=== PATIENT | female | born 1945 | race Caucasian/White ===

== ENCOUNTER 2025-01-22 13:05 | Observation (INO) | payer MEDICARE, SELFPAY ==
[2025-01-22] VITALS (14 sets, daily range): BP systolic 121–169; BP diastolic 44–68; PULSE 63–91; RESP 18–30; TEMP 36.1–36.4; O2SAT 94–100; BMI 26.9; BMI 27.3
--- NOTE | 2025-01-22 13:20 | DI.RAD.S_ITS ---
PROCEDURE: XR CHEST 1V INDICATIONS: Chest Pain TECHNIQUE: One view of the chest was acquired. COMPARISON: None. FINDINGS: Surgical changes and devices: None. Lungs and pleura: Lungs are clear. No pleural effusions or pneumothorax. Mediastinum: Mediastinal contours appear normal. Vascular calcifications of the thoracic aorta. Heart size is normal. Bones and chest wall: No suspicious bony lesions. Overlying soft tissues appear unremarkable. IMPRESSION: No acute cardiopulmonary abnormality is seen. Dictated by: Andreas Riddle M.D. on 01/22/2025 at 13:55 Approved by: Andreas Riddle M.D. on 01/22/2025 at 13:55
--- NOTE | 2025-01-22 13:20 | EKG_ITS ---
[address] [address] Test Date: 2025-01-22 Pat Name: Aleksandra Estrada Department: [facility] Room: Gender: Female Departmental Secretary: HUSSAIN : 1945 Requested By: Order Number: [id number] Reading MD: David Gonsales MD Measurements Intervals [place] Rate: 68 P: 22 MN: 166 QRS: 23 QRSD: 90 T: 21 QT: 398 QTc: 423 Interpretive Statements Normal sinus rhythm Possible Anterior infarct , age undetermined Electronically Signed On 01-23-2025 7:37:22 PDT by David Gonsales MD
[2025-01-22 13:40] LABS: Add Manual Diff / Slide Review NO; Hematocrit 36.9 % (36-46); Hemoglobin 12.2 g/dL (12.0-16.0); Lymphocytes Absolute Auto 1300 /uL (1100-4500); Mean Corpuscular HGB Conc 33.1 % (30-36); Mean Corpuscular Hemoglobin 28.3 PG (26-34); Mean Corpuscular Volume 85.5 fL (80-100); Platelet Count 478 X10^3/uL (150-400)
[2025-01-22 13:47] LABS: INR 1.2 (0.9-1.3); Prothrombin Time 13.9 SECONDS (9.4-12.5)
[2025-01-22 13:50] LABS: PTT Partial Thromboplastin Tim 29 SECONDS (25.1-36.5)
[2025-01-22 13:52] LABS: Alanine Aminotransferase 83 IU/L (<35); Albumin 4.3 g/dL (3.5-5.0); Albumin Globulin Ratio 1.0 (1.0-2.8); Alkaline Phosphatase 188 U/L (38-126); Blood Urea Nitrogen 21 mg/dL (7-17); Calcium 9.7 mg/dL (8.4-10.2); Carbon Dioxide 25 mmol/L (22-32); Chloride 98 mmol/L (98-107); Creatine Kinase 33 U/L (30-135); Estimated Glomerular Filt Rate > 60 mL/min (>60); Globulin 4.2 g/dL (1.7-4.1); Glucose 119 mg/dL (70-99); HEMOLYSIS < 15 (0-50); Lipase 67 U/L (23-300); Magnesium 2.1 mg/dL (1.6-2.3); Potassium 3.7 mmol/L (3.4-5.1); Sodium 134 mmol/L (137-145); Total Protein 8.5 g/dL (6.3-8.2)
[2025-01-22 14:03] LABS: NT-proBNP (BNP-Adult 18+) 277 pg/mL (<450); Troponin I < 0.012 ng/mL (0.01-0.034)
--- NOTE | 2025-01-22 14:45 | ED_ITS ---
HPI - General Adult General Chief complaint: Dizziness Stated complaint: [facility] ref - dizzy, unsteady Time Seen by Provider: 01/22/25 13:29 Source: patient Mode of arrival: Ambulatory History of Present Illness HPI narrative: Patient here with daughter. In the past couple of days has had 5-10 minutes episodes of dizziness feels like the room is spinning. No nausea no vomiting no vision changes. No slurred speech facial droop limb numbness tingling or weakness. No hearing changes. Patient denies any history of heart attack strokes diabetes or vertigo. Dizziness occurs when she is at rest. It is not positional with positional changes. Related Data Home Medications ?Medication ?Instructions ?Recorded ?Confirmed atorvastatin 40 mg tablet 40 mg PO DAILY 01/22/2501/02 lisinopril 20 1 tab PO DAILY 01/22/2501/02 mg-hydrochlorothiazide 25 mg tablet Allergies Allergy/AdvReac Type Severity Reaction Status Date / Time cocamidopropyl betaine Allergy Unknown Verified 01/22/25 13:36 lanolin Allergy Unknown Verified 01/22/25 13:36 naproxen Allergy Unknown Verified 01/22/25 13:36 propolis (bee glue) Allergy Unknown Verified 01/22/25 13:36 soy Allergy Unknown Verified 01/22/25 13:36 Sulfa (Sulfonamide Allergy Unknown Verified 01/22/25 13:36 Antibiotics) wheat Allergy Unknown Verified 01/22/25 13:36 balsam dayana Allergy Verified 01/22/25 13:36 corn Allergy Verified 01/22/25 13:36 egg Allergy Verified 01/22/25 13:36 Fish Containing Products Allergy Verified 01/22/25 13:36 tomato Allergy Verified 01/22/25 13:36 conrado sulfate Allergy Unknown Uncoded 01/22/25 13:36 ppd paraphenylenediamine dye Allergy Unknown Uncoded 01/22/25 13:36 sorbitan sequioleate Allergy Unknown Uncoded 01/22/25 13:36 sorbitol acid Allergy Unknown Uncoded 01/22/25 13:36 sulfites Allergy Unknown Uncoded 01/22/25 13:36 benzophenone-3 Allergy Uncoded 01/22/25 13:36 benzophenone-4 Allergy Uncoded 01/22/25 13:36 textile dye mix Allergy Uncoded 01/22/25 13:36 Review of Systems Review of Systems Narrative: GENERAL: Negative chills, fatigue, malaise, fever, sweats. HEENT: Negative sinus pain, ear pain, sore throat RESPIRATORY: Negative dyspnea, cough CARDIOVASCULAR: Negative chest pain, palpitations GASTROINTESTINAL: Negative vomiting, nausea, abdominal pain : Negative dysuria, frequency, hematuria MUSCULOSKELETAL: Negative muscle or bony pain SKIN: Negative rash, skin lesions NEUROLOGIC: Negative weakness, numbness, positive dizziness ROS Unobtainable: All systems reviewed & are unremarkable except as noted in HPI and below Patient History Social History household members: children Smoking Status: Never smoker alcohol intake: never Smoking Status: Never smoker Exam Narrative Exam Narrative: GENERAL: in no distress, not toxic not dyspneic HEAD: Normocephalic. EYES: Pupils equal round ENT: Mucous membranes moist. NECK: Trachea midline. CARDIOVASCULAR: Regular rate and rhythm RESPIRATORY: Clear to auscultation. Breath sounds equal bilaterally. No wheezes, rales, or rhonchi. GASTROINTESTINAL: Abdomen soft, non-tender EXTREMITIES: No gross deformities. BACK: No flank tenderness. NEURO: AOx4. 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 Fast exam is negative. SKIN: Warm and dry PSYCH: Not anxious, is cooperative Initial Vital Signs Initial Vital Signs: Vital Signs Blood Pressure 144/63 H 01/22/25 13:17 Scores NIH Stroke Scale Level of Conciousness: Alert, keenly responsive Ask month/age: Answers both questions correctly. Open/close eyes, close hand: Performs both tasks correctly Best gaze horizontal: Normal Visual locke: No visual loss Facial palsy: Normal symetrical movement Left arm drift: No drift for full 10 sec Right arm drift: No drift for full 10 sec Left leg drift: No drift for full 5 sec Right leg drift: No drift for full 5 sec Limb ataxia: Absent Sensory on face/arms/legs: Normal, no sensory loss Best language: No aphasia, normal Dysarthria: Normal Extinction or inattention: No abnormality Total NIH Stroke scale score: 0 Course Orders Ordered: ED Orders 01/22/25 13:20 XR chest 1V Stat EKG-12 Lead Stat 01/22/25 13:30 Complete Blood Count AUTO DIFF Stat Comprehensive Metabolic Panel Stat Lipase Stat Magnesium Stat NT-proBNP (BNP-Adult 18+) Stat PTT Partial Thromboplastin [place] Stat Prothrombin Time INR Stat Troponin & CK Cardiac Panel Stat 01/22/25 14:52 CT angio head and neck Stat CT head/brain wo con Stat 01/22/25 15:01 Urinalysis and Microscopic Stat Urine Culture Stat Acetaminophen (Acetaminophen 325 Mg Tablet) 650 mg PO Q6H PRN PRN Reason: Fever Aspirin (Aspirin Ec 81 Mg Tablet) 81 mg PO DAILY [facility] Atorvastatin Calcium (Atorvastatin 20 Mg Tablet) 80 mg PO BEDTIME [facility] Clopidogrel Bisulfate (Clopidogrel 75 Mg Tablet) 75 mg PO DAILY [facility] Heparin Sodium (Porcine) (Heparin 5,000 Unit/Ml Vial) 5,000 unit SUBCUT BID [facility] Sodium Chloride (Normal Saline 0.9%) 1,000 mls @ 75 mls/hr IV CONT BACILIO Last Admin: 01/22/25 17:26 Dose: 75 mls/hr Documented By: CESAR Naloxone HCl (Naloxone 0.4 Mg/Ml Vial) 0.2 mg IV Q2MIN PRN PRN Reason: Opiate Reversal Discontinued Medications Aspirin (Aspirin 81 Mg Chew Tab) 324 mg PO NOW ONE Stop: 01/22/25 13:21 Last Admin: 01/22/25 15:05 Dose: Not Given Documented By: YARITZA Clopidogrel Bisulfate (Clopidogrel 75 Mg Tablet) 300 mg PO NOW ONE Stop: 01/22/25 15:53 Last Admin: 01/22/25 16:00 Dose: 300 mg Documented By: YARITZA Sodium Chloride (Normal Saline 0.9%) 1,000 mls @ 1,000 mls/hr IV BOLUS ONE Stop: 01/22/25 15:55 Last Infusion: 01/22/25 16:28 Dose: Infused Documented By: Admin: 01/22/25 15:16 Dose: 1,000 mls/hr Documented By: YARITZA Vital Signs Vital signs: Vital Signs - 8 hr 01/22/25 13:17 01/22/25 13:18 01/22/25 13:23 Temperature 97.5 F L Pulse Rate 83 78 Respiratory Rate 18 Blood Pressure 144/63 H 144/63 H Pulse Oximetry 94 97 Oxygen Delivery Method Room Air 01/22/25 13:30 01/22/25 14:00 01/22/25 14:30 Temperature Pulse Rate 67 66 63 Respiratory Rate 22 22 26 H Blood Pressure Pulse Oximetry 97 96 96 Oxygen Delivery Method 01/22/25 15:00 01/22/25 15:18 01/22/25 15:18 Temperature Pulse Rate 76 76 Respiratory Rate 26 H 25 H Blood Pressure 151/65 H Pulse Oximetry 96 99 Oxygen Delivery Method 01/22/25 15:30 01/22/25 15:30 01/22/25 16:00 Temperature Pulse Rate 75 70 Respiratory Rate 30 H 22 Blood Pressure 140/66 Pulse Oximetry 97 96 Oxygen Delivery Method 01/22/25 16:01 01/22/25 16:01 Temperature Pulse Rate 77 Respiratory Rate 26 H Blood Pressure 121/58 L Pulse Oximetry 96 Oxygen Delivery Method Medical Decision Making Lab Data 01/22/25 13:30 01/22/25 13:30 Labs: Lab Results 01/22/25 01/22/25 Range/Units 13:30 15:01 WBC 11.0 (4.5-11.0) X10^3/uL RBC 4.31 (4.0-5.2) X10^6/uL Hgb 12.2 (12.0-16.0) g/dL Hct 36.9 (36-46) % MCV 85.5 (80-100) fL MCH 28.3 (26-34) PG MCHC 33.1 (30-36) % RDW 14.1 (11.6-14.8) % Plt Count 478 H (150-400) X10^3/uL Neut % (Auto) 79.2 H (50-75) % Lymph % (Auto) 11.5 L (25-40) % [place] % (Auto) 7.9 (3-14) % Eos % (Auto) 1.0 L (2-4) % Baso % (Auto) 0.4 (0-2) % Neut # (Auto) 8700 H (8470-0037) /uL Lymph # (Auto) 1300 (5385-1370) /uL [place] # (Auto) 900 (0-900) /uL Eos # (Auto) 100 (0-450) /uL Baso # (Auto) 0 (0-100) /uL PT 13.9 H (9.4-12.5) SECONDS INR 1.2 (0.9-1.3) APTT 29 (25.1-36.5) SECONDS Sodium 134 L (137-145) mmol/L Potassium 3.7 (3.4-5.1) mmol/L Chloride 98 (98-107) mmol/L Carbon Dioxide 25 (22-32) mmol/L BUN 21 H (7-17) mg/dL Creatinine 0.65 (0.52-1.04) mg/dL Estimated GFR > 60 (>60) mL/min BUN/Creatinine Ratio 32.3 H (6-22) Glucose 119 H (70-99) mg/dL Hemoglobin A1c 6.6 H (4.0-6.0) % Calcium 9.7 (8.4-10.2) mg/dL Magnesium 2.1 (1.6-2.3) mg/dL Total Bilirubin 0.7 (0.2-1.3) mg/dL AST 45 H (14-36) IU/L ALT 83 H (<35) IU/L Alkaline Phosphatase 188 H (38-126) U/L Total Creatine Kinase 33 (30-135) U/L Troponin I < 0.012 (0.01-0.034) ng/mL NT-Pro-B Natriuret Pep 277 (<450) pg/mL Total Protein 8.5 H (6.3-8.2) g/dL Albumin 4.3 (3.5-5.0) g/dL Globulin 4.2 H (1.7-4.1) g/dL Albumin/Globulin Ratio 1.0 (1.0-2.8) Triglycerides 73 (35-150) mg/dL Cholesterol 130 L (140-199) mg/dL LDL Cholesterol, Calc 77 (<100) mg/dL HDL Cholesterol 38 L (40-60) mg/dL Lipase 67 (23-300) U/L TSH 0.752 (0.47-4.68) uIU/mL Urine Color Yellow Urine Appearance Clear Urine pH 6.0 (4.5-8.0) Ur Specific [place] <=1.005 (1.000-1.035) Urine Protein Negative (Negative) Urine Glucose (UA) Negative (Negative) g/dL Urine Ketones Negative (NEGATIVE) Urine Occult Blood Trace-intact (Negative) Urine Nitrate Negative (Negative) Urine Bilirubin Negative (NEGATIVE) Urine Urobilinogen 0.2 (0.2) E.U./dL Ur Leukocyte Esterase 1+ H (NEGATIVE) Urine RBC 0-1/hpf (0-5/HPF) Urine WBC 1-5/hpf (0-5/HPF) Ur Squamous Epith Cells 0-1 /hpf (0-5/HPF) Urine Bacteria Occasional (0-1) (None) Ur Culture Indicated? Specimen cultured Vol Urine Centrifuged 10ml (spun) Imaging Data Chest x-ray: Radiologist's Impression: [address] [address] XRay Report Signed Patient: Aleksandra Estrada MR#: [id number] : 1945 Acct:[id number] Age/Sex: 79 / F Date of Service: 01/22/25 Loc: ED Accession Number: [id number] Procedure: XR chest 1V Ordering Provider: Gavino Burleson MD PROCEDURE: XR CHEST 1V INDICATIONS: Chest Pain TECHNIQUE: One view of the chest was acquired. COMPARISON: None. FINDINGS: Surgical changes and devices: None. Lungs and pleura: Lungs are clear. No pleural effusions or pneumothorax. Mediastinum: Mediastinal contours appear normal. Vascular calcifications of the thoracic aorta. Heart size is normal. Bones and chest wall: No suspicious bony lesions. Overlying soft tissues appear unremarkable. IMPRESSION: No acute cardiopulmonary abnormality is seen. Dictated by: Andreas Riddle M.D. on 01/22/2025 at 13:55 Approved by: Andreas Riddle M.D. on 01/22/2025 at 13:55 CT scan - head: Radiologist's Impression: [address] [address] [address] Scan Report Signed Patient: Aleksandra Estrada MR#: [id number] : 1945 Acct:[id number] Age/Sex: 79 / F Date of Service: 01/22/25 Loc: ED Accession Number: [id number] Procedure: CT head/brain wo con Ordering Provider: Gavino Burleson MD PROCEDURE: CT HEAD/BRAIN WO CON INDICATIONS: Dizziness TECHNIQUE: Noncontrast 4.5 mm thick angled axial sections acquired from the foramen magnum to the vertex, with coronal and sagittal reformats. For radiation dose reduction, the following was used: automated exposure control, adjustment of mA and/or kV according to patient size. COMPARISON: Located Within [facility], CT, CT ANGIO HEAD AND NECK, 01/22/2025, 15:00. FINDINGS: Image quality: Diagnostic. CSF spaces: Basal cisterns are patent. No extra-axial fluid collections. The ventricles are symmetric in size and shape. Brain: No intracranial bleeds or mass effect. There is cerebral volume loss, with resultant ventricular and sulcal prominence. There are periventricular and deep white matter chronic small vessel ischemic changes. There is intracranial internal carotid artery atherosclerosis. 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 Skull and face: Calvarium and visualized facial bones appear intact, without suspicious lesions. Sinuses: Visualized sinuses and mastoids are clear. IMPRESSION: 1. 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 2. No acute posterior fossa brain parenchymal findings. Comment: Recommend stroke protocol brain MRI with without contrast. Imaging should utilize dissection protocol in the neck. Dictated by: Robby Luis M.D. on 01/22/2025 at 15:41 Approved by: Robby Luis M.D. on 01/22/2025 at 15:42 CTA - brain/neck: Radiologist's Impression: [place] [address] CT Scan Report Signed Patient: Aleksandra Estrada MR#: [id number] : 1945 Acct:[id number] Age/Sex: 79 / F Date of Service: 01/22/25 Loc: ED Accession Number: [id number] Procedure: CT angio head and neck Ordering Provider: Gavino Burleson MD PROCEDURE: CT ANGIO HEAD AND NECK INDICATIONS: Dizziness TECHNIQUE: After the administration of intravenous contrast, 1 mm thick sections acquired from the aortic arch through the [place] of [place]. 3-dimensional qdjgzai-jfxisegxc-dfsoouqdxc (MIP) and/or volume rendering reformats were acquired of the central intracranial vasculature and neck separately. For radiation dose reduction, the following was used: automated exposure control, adjustment of mA and/or kV according to patient size. COMPARISON: Located Within [facility], CT, CT HEAD/BRAIN WO CON, 01/22/2025, 15:00. FINDINGS: Image quality: Diagnostic. Cerebral CT Angiogram: Internal carotid arteries: No acute findings. Intracranial ICA are patent with no significant stenosis. No occlusion. No aneurysm. Anterior cerebral arteries: Unremarkable. No significant stenosis. No occlusion. No aneurysm. Middle cerebral arteries: Unremarkable. No significant stenosis. No occlusion. No aneurysm. Posterior cerebral arteries: Unremarkable. No significant stenosis. No occlusion. No aneurysm. Basilar artery: Unremarkable. No significant stenosis. No occlusion. No aneurysm. Vertebral arteries: The left vertebral artery is almost completely thrombosed. There is patency of the distal V4 segment which likely fills in a retrograde manner. The vessel appears to be normal caliber suggesting that thrombosis may be acute. The right vertebral artery is normal caliber and is widely patent. Dural venous sinuses: Unremarkable given phase of enhancement. Other: Arterial phase appearance of the brain parenchyma is unremarkable. Neck CT Angiogram: Internal carotid arteries: Unremarkable. No significant stenosis. No dissection or occlusion. Common carotid arteries: Unremarkable. No significant stenosis. No dissection or occlusion. External carotid arteries: Unremarkable. No occlusion. Vertebral arteries: Occlusion of virtually the entire left vertebral artery from its origin to the distal V4 segment. Suspect acute thrombosis. Right vertebral artery is widely patent. Aortic Arch and Mediastinum: Partially visualized aortic arch unremarkable without evidence of aneurysm. Origins of the great vessels unremarkable. Other: 1.8 cm left thyroid nodule. Arterial phase soft tissues of the neck and chest are otherwise unremarkable. 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 There is patency of the distal V4 segment. The basilar artery and posterior cerebral arteries are patent. No significant findings involving the anterior circulation. No significant carotid stenosis. Comment: Findings were discussed with Dr. Burleson on 01/22/2025 at 1534 hours Any quantitative measurements of stenosis were performed using NASCET criteria. Dictated by: Robby Luis M.D. on 01/22/2025 at 15:30 Approved by: Robby Luis M.D. on 01/22/2025 at 15:35 [facility] Narrative Medical decision making narrative: Patient here with daughter. In the past couple of days has had 5-10 minutes episodes of dizziness feels like the room is spinning. No nausea no vomiting no vision changes. No slurred speech facial droop limb numbness tingling or weakness. No hearing changes. Patient denies any history of heart attack strokes diabetes or vertigo. Dizziness occurs when she is at rest. It is not positional with positional changes. MDM After history and exam, CT head CT angiogram head and neck CBC CMP EKG troponin normal saline orthostatics Differential considered: Includes but not limited to TIA stroke vertigo labyrinthitis anemia GI bleed arrhythmia Medical records reviewed: No recent visit for this complaint Lab Test results independently reviewed as above. Pertinent findings: WBC 11 hemoglobin 12 INR 1.2 sodium 134 potassium 3.7 BUN 21 creatinine 0.65 GFR greater than 60 AST 45 ALT 83 troponin less than 0.012 Independently reviewed EKG normal sinus rhythm rate [address] elevation or depression Imaging studies independently reviewed: CT head CT angiogram head and neck occlusion of the left vertebral artery. Consultations: 3:50 p.m.. I spoke with Dr. Pink, [facility] tele stroke, no transfer indicated. No intervention for vertebral artery finding. Admit here for stroke workup. Start dual antiplatelet therapy. 4:05 p.m.. Spoke with hospitalist, dr burton, who will admit patient. Re-evaluations: 3:53 p.m.. Updated patient results. Will need admission for stroke workup. Discussion: Appropriate for admission for balance and workup for TIA/stroke. Neurology was contacted. Aspirin and Plavix started in the department Diagnosis: TIA Discharge Plan Departure Patient Disposition: Admitted As Inpatient Clinical Impression: Brain TIA Admit Date/Time: 01/22/25 16:06 Admit Provider: Augustine Burton
--- NOTE | 2025-01-22 14:52 | DI.CT.S_ITS ---
PROCEDURE: CT ANGIO HEAD AND NECK INDICATIONS: Dizziness TECHNIQUE: After the administration of intravenous contrast, 1 mm thick sections acquired from the aortic arch through the [place] of [place]. 3-dimensional mbadeel-sjnnpmzhl-kkveyqolhw (MIP) and/or volume rendering reformats were acquired of the central intracranial vasculature and neck separately. For radiation dose reduction, the following was used: automated exposure control, adjustment of mA and/or kV according to patient size. COMPARISON: [facility], CT, CT HEAD/BRAIN WO CON, 01/22/2025, 15:00. FINDINGS: Image quality: Diagnostic. Cerebral CT Angiogram: Internal carotid arteries: No acute findings. Intracranial ICA are patent with no significant stenosis. No occlusion. No aneurysm. Anterior cerebral arteries: Unremarkable. No significant stenosis. No occlusion. No aneurysm. Middle cerebral arteries: Unremarkable. No significant stenosis. No occlusion. No aneurysm. Posterior cerebral arteries: Unremarkable. No significant stenosis. No occlusion. No aneurysm. Basilar artery: Unremarkable. No significant stenosis. No occlusion. No aneurysm. Vertebral arteries: The left vertebral artery is almost completely thrombosed. There is patency of the distal V4 segment which likely fills in a retrograde manner. The vessel appears to be normal caliber suggesting that thrombosis may be acute. The right vertebral artery is normal caliber and is widely patent. Dural venous sinuses: Unremarkable given phase of enhancement. Other: Arterial phase appearance of the brain parenchyma is unremarkable. Neck CT Angiogram: Internal carotid arteries: Unremarkable. No significant stenosis. No dissection or occlusion. Common carotid arteries: Unremarkable. No significant stenosis. No dissection or occlusion. External carotid arteries: Unremarkable. No occlusion. Vertebral arteries: Occlusion of virtually the entire left vertebral artery from its origin to the distal V4 segment. Suspect acute thrombosis. Right vertebral artery is widely patent. Aortic Arch and Mediastinum: Partially visualized aortic arch unremarkable without evidence of aneurysm. Origins of the great vessels unremarkable. Other: 1.8 cm left thyroid nodule. Arterial phase soft tissues of the neck and chest are otherwise unremarkable. 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 There is patency of the distal V4 segment. The basilar artery and posterior cerebral arteries are patent. No significant findings involving the anterior circulation. No significant carotid stenosis. Comment: Findings were discussed with Dr. Burleson on 01/22/2025 at 1534 hours Any quantitative measurements of stenosis were performed using NASCET criteria. Dictated by: Robby Luis M.D. on 01/22/2025 at 15:30 Approved by: Robby Luis M.D. on 01/22/2025 at 15:35
--- NOTE | 2025-01-22 14:52 | DI.CT.S_ITS ---
PROCEDURE: CT HEAD/BRAIN WO CON INDICATIONS: Dizziness TECHNIQUE: Noncontrast 4.5 mm thick angled axial sections acquired from the foramen magnum to the vertex, with coronal and sagittal reformats. For radiation dose reduction, the following was used: automated exposure control, adjustment of mA and/or kV according to patient size. COMPARISON: [facility], CT, CT ANGIO HEAD AND NECK, 01/22/2025, 15:00. FINDINGS: Image quality: Diagnostic. CSF spaces: Basal cisterns are patent. No extra-axial fluid collections. The ventricles are symmetric in size and shape. Brain: No intracranial bleeds or mass effect. There is cerebral volume loss, with resultant ventricular and sulcal prominence. There are periventricular and deep white matter chronic small vessel ischemic changes. There is intracranial internal carotid artery atherosclerosis. 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 Skull and face: Calvarium and visualized facial bones appear intact, without suspicious lesions. Sinuses: Visualized sinuses and mastoids are clear. IMPRESSION: 1. 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 2. No acute posterior fossa brain parenchymal findings. Comment: Recommend stroke protocol brain MRI with without contrast. Imaging should utilize dissection protocol in the neck. Dictated by: Robby Luis M.D. on 01/22/2025 at 15:41 Approved by: Robby Luis M.D. on 01/22/2025 at 15:42
[2025-01-22 15:16] LABS: Appearance Urine UA CLEAR; Bilirubin Urine UA NEGATIVE (NEGATIVE); Color Urine UA YELLOW; Glucose Urine UA NEGATIVE (Negative); Ketones Urine UA NEGATIVE (NEGATIVE); Leukocyte Esterase Urine UA 1+ (NEGATIVE); Nitrite Urine UA NEGATIVE (Negative); Occult Blood Urine UA TRACE-INTACT (Negative); Protein Urine UA NEGATIVE (Negative); Specific Gravity Urine UA <=1.005 (1.000-1.035); Urobilinogen Urine UA 0.2 E.U./dL (0.2)
[2025-01-22] MEDS: SODIUM CHLORIDE 0.9% 1,000 ML 1000 ML IV (15:16)
[2025-01-22 15:21] LABS: pH Urine UA 6.0 (4.5-8.0)
[2025-01-22 15:29] LABS: Culture Indicated Urine Specimen Cultured
[2025-01-22] MEDS: CLOPIDOGREL 75 MG TABLET 300 MG PO (16:00)
--- NOTE | 2025-01-22 16:04 | P.HP_ITS ---
History of Present Illness History of Present Illness Date Patient Seen: 01/22/25 Chief complaint: Left vertebral artery occlusion with stroke Narrative: Chief complaint: Vertiginous spinning sensation with findings of acute left vertebral artery occlusion with subacute stroke on CT imaging and angiography History of present illness 79-year-old female no previous history of strokes or myocardial infarction has been having 5-10 minute episodes dizziness feeling like the room is spinning for the past 2 days was brought to the emergency department for evaluation. She reports when she walks she had to hold up on the hallways and specially felt clumsy with her left leg Findings in the emergency department significant for: CT head and vessels angiography: 1. 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 2. No acute posterior fossa brain parenchymal findings. Comment: Recommend stroke protocol brain MRI with without contrast. Imaging should utilize dissection protocol in the neck. There is patency of the distal V4 segment. The basilar artery and posterior cerebral arteries are patent. No significant findings involving the anterior circulation. No significant carotid stenosis. EKG normal sinus rhythm no acute ST segment or T-wave changes CBC unremarkable comprehensive metabolic unremarkable AST 45 ALT 83 Urinalysis unremarkable Review of systems: Patient has not had any headache diplopia blurred vision or level of consciousness change No chest pains palpitations shortness for breath Did have epistaxis and cough following COVID 2 weeks ago No nausea vomiting diarrhea constipation No fever or chills No urinary symptom Physical exam: Elderly female very pleasant no acute distress HEENT unremarkable PERRLA EOMI Visual locke are intact Neck no carotid bruits no thyromegaly Heart rate and rhythm regular no murmurs Lungs clear Abdomen nontender nondistended Extremities no edema Neurologic exam: Alert and oriented x4 NIH score 0 Cranial nerves intact Visual locke intact 5/5 strength x4 in all extremities 1+ reflexes in all 4 extremities and normal Light touch position sense intact Finger to nose slightly dysmetric on left normal on right Gait is slightly unsteady Able to stand and right foot unable to stand on left leg alone Negative Romberg Assessment and plan: 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 presenting with subtle findings of balance and gait disturbances * Outside of window for thrombolytic * Determined not a candidate for interventional Neurology by [facility] * Dual antiplatelet high intensity statin * Permissive hypertension for 24 hour * Echocardiogram (this may be cardiogenic in origin) * MRI with and without contrast of the brain with dissection protocol * Neuro checks PT OT and usual stroke protocol DVT prophylaxis: * Subcutaneous heparin Code status: * Do not resuscitate per POLST Disposition: * Inpatient expect to require 48 hours of hospitalization and then expect discharge to home with outpatient PT OT Time based billing: * 55 minutes were involved in evaluation of this patient including direct [id number] evaluation and discussion discussion with daughter direct physical examination neurologic examination review of record objective laboratory and imaging findings including direct visualization of imaging by myself and discussion with ER provider and nursing care team on the floor [facility] Social History household members: children alcohol intake: never Meds Home Medications and Allergies Home Medications ?Medication ?Instructions ?Recorded ?Confirmed ?Type atorvastatin 40 mg tablet 40 mg PO DAILY 01/22/2501/02 History lisinopril 20 1 tab PO DAILY 01/22/2501/02 History mg-hydrochlorothiazide 25 mg tablet Allergies Allergy/AdvReac Type Severity Reaction Status Date / Time cocamidopropyl betaine Allergy Unknown Verified 01/22/25 13:36 lanolin Allergy Unknown Verified 01/22/25 13:36 naproxen Allergy Unknown Verified 01/22/25 13:36 propolis (bee glue) Allergy Unknown Verified 01/22/25 13:36 soy Allergy Unknown Verified 01/22/25 13:36 Sulfa (Sulfonamide Allergy Unknown Verified 01/22/25 13:36 Antibiotics) wheat Allergy Unknown Verified 01/22/25 13:36 balsam dayana Allergy Verified 01/22/25 13:36 corn Allergy Verified 01/22/25 13:36 egg Allergy Verified 01/22/25 13:36 Fish Containing Products Allergy Verified 01/22/25 13:36 tomato Allergy Verified 01/22/25 13:36 conrado sulfate Allergy Unknown Uncoded 01/22/25 13:36 ppd paraphenylenediamine dye Allergy Unknown Uncoded 01/22/25 13:36 sorbitan sequioleate Allergy Unknown Uncoded 01/22/25 13:36 sorbitol acid Allergy Unknown Uncoded 01/22/25 13:36 sulfites Allergy Unknown Uncoded 01/22/25 13:36 benzophenone-3 Allergy Uncoded 01/22/25 13:36 benzophenone-4 Allergy Uncoded 01/22/25 13:36 textile dye mix Allergy Uncoded 01/22/25 13:36 Exam Vital Signs (past 8 hours): - 01/22/25 13:17 01/22/25 13:18 01/22/25 13:23 Temperature 97.5 F L Pulse Rate 83 78 Respiratory Rate 18 Blood Pressure 144/63 H 144/63 H Pulse Oximetry 94 97 Oxygen Delivery Method Room Air 01/22/25 13:30 01/22/25 14:00 01/22/25 14:30 Temperature Pulse Rate 67 66 63 Respiratory Rate 22 22 26 H Blood Pressure Pulse Oximetry 97 96 96 Oxygen Delivery Method 01/22/25 15:00 01/22/25 15:18 01/22/25 15:18 Temperature Pulse Rate 76 76 Respiratory Rate 26 H 25 H Blood Pressure 151/65 H Pulse Oximetry 96 99 Oxygen Delivery Method 01/22/25 15:30 01/22/25 15:30 Temperature Pulse Rate 75 Respiratory Rate 30 H Blood Pressure 140/66 Pulse Oximetry 97 Oxygen Delivery Method Oxygen Delivery Method Room Air Objective Labs 01/22/25 13:30 01/22/25 13:30 Labs: Laboratory Results - last 24 hr 01/22/25 01/22/25 13:30 15:01 WBC 11.0 RBC 4.31 Hgb 12.2 Hct 36.9 MCV 85.5 MCH 28.3 MCHC 33.1 RDW 14.1 Plt Count 478 H Neut % (Auto) 79.2 H Lymph % (Auto) 11.5 L Garrard % (Auto) 7.9 Eos % (Auto) 1.0 L Baso % (Auto) 0.4 Neut # (Auto) 8700 H Lymph # (Auto) 1300 Garrard # (Auto) 900 Eos # (Auto) 100 Baso # (Auto) 0 PT 13.9 H INR 1.2 APTT 29 Sodium 134 L Potassium 3.7 Chloride 98 Carbon Dioxide 25 BUN 21 H Creatinine 0.65 Estimated GFR > 60 BUN/Creatinine Ratio 32.3 H Glucose 119 H Calcium 9.7 Magnesium 2.1 Total Bilirubin 0.7 AST 45 H ALT 83 H Alkaline Phosphatase 188 H Total Creatine Kinase 33 Troponin I < 0.012 NT-Pro-B Natriuret Pep 277 Total Protein 8.5 H Albumin 4.3 Globulin 4.2 H Albumin/Globulin Ratio 1.0 Lipase 67 Urine Color Yellow Urine Appearance Clear Urine pH 6.0 Ur Specific [place] <=1.005 Urine Protein Negative Urine Glucose (UA) Negative Urine Ketones Negative Urine Occult Blood Trace-intact Urine Nitrate Negative Urine Bilirubin Negative Urine Urobilinogen 0.2 Ur Leukocyte Esterase 1+ H Urine RBC 0-1/hpf Urine WBC 1-5/hpf Ur Squamous Epith Cells 0-1 /hpf Urine Bacteria Occasional (0-1) Ur Culture Indicated? Specimen cultured Vol Urine Centrifuged 10ml (spun) Assessment & Plan Time-Based Coding :: [TOTAL MINUTES] spent with patient and on the chart (including review of chart, obtaining history, exam, reviewing outside data, placing orders, documenting exam and treatment plan, and counseling patient) on [DATE].
--- NOTE | 2025-01-22 17:08 | DI.ECHO.S_ITS ---
[facility] : : [address] : : [place] : : [id number] : : Phone: [phone] Echocardiogram Report + + :Name: DENVER MCCLOUD Study Date: 01/23/2025 Height: 63 in : :Hospital ReadingLocation: Weight: 154 lb : : Gender: Female BSA: 1.7 m2 : :: 1945 Age: 79 yrs BP: 122/51 mmHg: :Reason For Study: STROKE : :Ordering Physician: RICARDO : :HECTOR Performed By: Tristen Calixto : :Referring: HECTOR SILVA : + + Interpretation Summary The ejection fraction is estimated to be 55-60%. There is no Doppler evidence for an interatrial shunt. There is mild tricuspid regurgitation. The dimensions of the ascending aorta are normal. Procedure: A two-dimensional transthoracic echocardiogram with color flow and Doppler was performed. The study quality was technically adequate. There is no prior echocardiogram noted for this patient. The patient was in normal sinus rhythm during the exam. Left Ventricle: The left ventricle is normal in size. There is normal left ventricular wall thickness. There is no ventricular septal defect visualized. The ejection fraction is estimated to be 55-60%. There are no focal wall motion abnormalities. Diastolic parameters suggest a relaxation abnormality of the left ventricle, consistent with probable normal filling pressures. Right Ventricle: The right ventricle is normal in size and function. Atria: The left atrial size is normal. Right atrial size is normal. There is no Doppler evidence for an interatrial shunt. Mitral Valve: The mitral valve leaflets appear normal. There is no evidence of stenosis, fluttering, or prolapse. There is trace mitral regurgitation. Aortic Valve: The aortic valve is trileaflet. The aortic valve opens well. No aortic regurgitation is present. Tricuspid Valve: The tricuspid valve leaflets are thin and pliable. There is mild tricuspid regurgitation. Pulmonic Valve: The pulmonic valve is not well seen, but is grossly normal. There is trace pulmonic regurgitation. Great Vessels: The aortic root is normal size. The dimensions of the ascending aorta are normal. The pulmonary artery is normal size. The IVC is of normal diameter and collapses greater than 50% with a sniff. This suggests a low right atrial pressure of 3 mm Hg. Pericardium/ Pleura There is no pericardial effusion. There is no pleural effusion. MMode/2D Measurements & Calculations LVIDd: 4.5 cm LVOT diam: 2.2 cm LVIDs: 3.1 cm Ao root diam: 3.2 cm FS: 31.8 % asc Aorta Diam: 3.0 cm EPSS: 0.61 cm IVSd: 1.0 cm LVPWd: 0.92 cm LV johnson. diameter/BSA (cm/m^2): 2.6 LV sys. diameter/BSA (cm/m^2): 1.8 LA A2 area: 22.5 cm2 RA long axis: 4.1 cm LA A4 area: 26.2 cm2 RA area: 13.2 cm2 LA length (vol): 6.6 cm RA vol: 36.5 ml LA vol: 75.9 ml RA : 21.1 ml/m2 LA vol index: 43.9 ml/m2 IVC diam: 1.3 cm RVD1 (basal): 3.8 cm RVD2 (mid): 2.5 cm TAPSE: 2.9 cm Doppler Measurements & Calculations Ao V2 max: 143.8 cm/sec LVOT Max Gilmar: 88.0 cm/sec Ao V2 mean: 102.1 cm/sec LV V1 max P.1 mmHg Ao max P.3 mmHg LV V1 VTI: 23.0 cm Ao mean P.5 mmHg GREGORIO(I,D): 2.6 cm2 Ao V2 VTI: 32.6 cm GREGORIO(V,D): 2.2 cm2 sev ratio: 0.71 GREGORIO indexed to BSA (cm^2/m^2): 1.5 MV E max gilmar: 70.9 cm/sec TR max gilmar: 240.1 cm/sec MV A max gilmar: 87.5 cm/sec TR max P.1 mmHg MV E/A: 0.81 PA V2 max: 87.4 cm/sec Med Peak E' Gilmar: 6.4 cm/sec PA V2 mean: 58.9 cm/sec E/E' med: 11.0 PA mean P.5 mmHg Lat Peak E' Gilmar: 6.8 cm/sec PA pr(Accel): 48.2 mmHg E/E' lat: 10.5 E/e' average: 10.7 MV dec time: 0.16 sec JELANIZEINAB): 84.0 ml Reading Physician:10:50 AM
--- NOTE | 2025-01-22 17:08 | PC.NURSE ---
Pt arrived to [facility] appx 1640. Ambulated to bathroom SBA, then to bed. Pt endorsed dizziness and feeling unsteady. BP 169/68. Pt oriented to room and call light, and instructed to call for assistance before getting OOB. Care ongoing.
[2025-01-22] MEDS: SODIUM CHLORIDE 0.9% 1,000 ML 75 ML IV (17:26)
[2025-01-22 18:03] LABS: Thyroid Stimulating Hormone 0.752 uIU/mL (0.47-4.68)
[2025-01-22 18:17] LABS: Cholesterol 130 mg/dL (140-199); HDL Cholesterol 38 mg/dL (40-60); Triglycerides 73 mg/dL (35-150)
[2025-01-22 18:19] LABS: Hemoglobin A1C% w Est Avg Glu 6.6 % (4.0-6.0)
[2025-01-22] MEDS: ATORVASTATIN 20 MG TABLET 80 MG PO (23:44)
[2025-01-22] MEDS: HEPARIN 5,000 UNIT/ML VIAL 5000 UNIT SUBCUT (23:46)
[2025-01-23 03:00] VITALS: BP 122/51; PULSE 86; RESP 18; TEMP 36.3; O2SAT 96
[2025-01-23 06:09] LABS: Blood Urea Nitrogen 14 mg/dL (7-17); Calcium 8.7 mg/dL (8.4-10.2); Carbon Dioxide 25 mmol/L (22-32); Chloride 102 mmol/L (98-107); Estimated Glomerular Filt Rate > 60 mL/min (>60); Glucose 113 mg/dL (70-99); HEMOLYSIS < 15 (0-50); Potassium 4.1 mmol/L (3.4-5.1); Sodium 133 mmol/L (137-145)
[2025-01-23] MEDS: SODIUM CHLORIDE 0.9% 1,000 ML 75 ML IV (06:31)
[2025-01-23 08:00] VITALS: BP 137/79; PULSE 97; RESP 17; TEMP 35.9; O2SAT 97
--- NOTE | 2025-01-23 09:16 | PT.IIE ---
Physical Therapy Inpatient Evaluation/Re-Eval M1 PT/OT-IP Prior Functional Status Start: 01/23/25 08:43 Freq: NEEDED Status: Active Protocol: Document 01/23/25 08:43 [facility] (Rec: 01/23/25 09:16 [facility] [id number]) Medical Review Prior Functional Status Medical History Yes Reviewed Diet/Fluid Regular Consistency Communication WAINWRIGHT Mobility and Gait no AD Activities of Daily indep cooks, cleans, drives in town until past month Living and IADL's when got COVID Social History Household Members children Living Arrangements House Number of Floors ( Two Floors Floors) Number of Stairs To 6 steps no rail Enter/Railing? Home Environment Standard Height Toilet,Walk in Shower,Built-In Shower Seat Home Equipment Quad Cane,Grab Bars Near Toilet Additional Social 4 steps to sewing room B rails, dgt lives in bottom History Comment level of house, rarely goes down Dgt recently retired M2 PT-IP Current Condition Start: 01/23/25 08:43 Freq: NEEDED Status: Active Protocol: Document 01/23/25 08:43 [facility] (Rec: 01/23/25 09:16 [facility] [id number]) Physical Therapy Current Condition Current Condition Evaluation Date 01/23/25 Treatment Diagnosis CVA M3 PT-IP Subjective Start: 01/23/25 08:43 Freq: NEEDED Status: Active Protocol: Document 01/23/25 08:43 [facility] (Rec: 01/23/25 09:16 [facility] [id number]) Subjective Physical Therapy Visit Type Type Initial Evaluation Visit Start Time 08:42 Visit Stop Time 09:05 Number of DISABILITY AIDE Visits 0 Physical Therapy Visit Comments Patient Comments agreeable to get up. Notes IV has helped Therapy Pain Assessment Pain Present Pain Present Denied Pain M4 PT-IP Mobility and Gait Start: 01/23/25 08:43 Freq: NEEDED Status: Active Protocol: Document 01/23/25 08:43 [facility] (Rec: 01/23/25 09:16 [facility] [id number]) PT-Transfer Assessment Sit to and From Stand Sit to and from Standby Assistance,Use of Upper Extremities Stand Equipment Transfer Assistive Gait Belt Device Orthotic/Prosthetic No Devices or Brace: Comments Mobility Comments seated in chair upon PT arrival and sit to stand SBA then amb CGA w/o AD w/occ reach for wall/surfaces but improved w/steadiness w/inc time w/pt noting knee Stiffness B. She did well with stairs w/CGA and was able to perform as she normally does indoors w/CGA d/t concern for balance. LEft with OT in room w/pt after session Gait Assessment Gait Gait Assistance Contact Guard Assist Required: Distance (Feet) 200 Able to Maintain Yes Weight Bearing Status During Gait Assistive Devices Assistive Device Gait Belt Orthotic/Prosthetic No Devices or Brace: Gait Deviations General Gait Pattern Decreased Feet Clearance,Lateral Trunk Lean,Wide Based Gait Factors Limiting Gait Function Factors Limiting Decreased Activity Tolerance,Decreased Strength,Poor Gait Function Balance Comments Gait Comments 141/54 Stair Climbing Assessment Evaluation Level of Assist On Contact Guard Assistance Stairs Devices Stair Climbing Left Railing Assistive Devices Technique/Endurance Stair Climbing Ascend and Descend Direction Stair Climbing Step Over Step,Step to Step Technique Number of Steps 3 Climbed Query Text: Stair Climbing Set # 2 Repetitions (reps) Comments Stair Climbing up stairs recip w/1 rail and down step to w/1 rail CGA Comments PT-Balance Assessment Sitting Balance and Reactions Static Sitting Normal Balance Ability Dynamic Sitting Normal Balance Ability Standing Balance and Reactions Static Standing Good Balance Ability Dynamic Standing Fair Balance Ability Device Used none M5 PT-IP Objective Assessments Start: 01/23/25 08:43 Freq: NEEDED Status: Active Protocol: Document 01/23/25 08:43 [facility] (Rec: 01/23/25 09:16 [facility] [id number]) Orientation Orientation/Cognition Level of Alertness Alert Language Function Hard of Hearing Ability Safety Awareness Understands Safety Issues Memory Description No Deficits Noted Gross Range of Motion Upper Extremity ROM Assessment Within Functional Limits Lower Extremity ROM Assessment Within Functional Limits Strength Lower Extremity Strength Hip 4-/5 hip flex R, L 4/5, b hip abd/add seated 5/5 Knee 4/5 grossly B Ankle 5/5 PF B, R 4/5, L 5/5 Coordination Assessment Assessment Heel on Gupta Test Normal Performance Sensation Assessment Sensation Gross Sensation WNL Muscle Tone Muscle Tone WNL Yes M6 PT-IP Treatment Start: 01/23/25 08:43 Freq: NEEDED Status: Active Protocol: Document 01/23/25 08:43 [facility] (Rec: 01/23/25 09:16 [facility] [id number]) Physical Therapy Treatment Education Education Provided Safety M7 PT-IP Assessment and Plan Start: 01/23/25 08:43 Freq: NEEDED Status: Active Protocol: Document 01/23/25 08:43 [facility] (Rec: 01/23/25 09:16 [facility] [id number]) PT Summary Assessment and Plan Potential Rehabilitation Good Potential Status of Condition Evolving at Evaluation Summary Impairments Strength,Balance,Bed Mobility,Transfers,Gait,Activity Tolerance Assessment Summary Pt presents w/cerebellar CVA d/t vertebral artery occlusion. She has some dec balance overall and dec activity tolerance and mild RLE weakness but notes R DF weakness has been there for years. Pt was recently sick w/COVID for a few weeks which limited her activity but prior to that was indep and did a lot of the cooking and cleaning in the house and sewed frequently. She would benefit from skilled PT to work on balance and mobility prior to returning home and would benefit from OP PT for balance upon return home. Goals Bed Mobility Goal Independent Transfer Goal Independent Gait Goal Independent Gait Distance 250ft Other Goals up/down 6 stairs w/no rail w/SPC Days to Meet Goals 5 Frequency of Treatment Frequency Of Once a Day Treatment Treatment Plan Physical Therapy Bed Mobility Training,Transfer Training,Gait Training, Treatment Plan Therapeutic Exercise,Balance Retraining,Neuromuscular Re-ed,Coordination Retraining Other up/down stairs w/SPC Recommendations and Next Treatment Focus Weight Bearing Status Weight Bearing Full Weight Bearing Status Recommendations To Nursing Amount of Assist Standby Assistance Needed Discharge Recommendations PT Discharge Home with Assistance,Outpatient PT Recommendations Transportation Needs Private Vehicle at Discharge - PT assist 1
--- NOTE | 2025-01-23 09:38 | OT.IP.EVAL ---
Occupational Therapy Inpatient Evaluation/Re-Eval M1 PT/OT-IP Prior Functional Status Start: 01/23/25 08:43 Freq: NEEDED Status: Active Protocol: Document 01/23/25 11:34 [facility] (Rec: 01/23/25 11:50 [facility] Desktop) Medical Review Prior Functional Status Medical History Yes Reviewed Diet/Fluid Regular Consistency Communication [place] Mobility and Gait no AD Activities of Daily indep cooks, cleans, drives in town until past month Living and IADL's when got COVID Social History Household Members children Living Arrangements House Number of Floors ( Two Floors Floors) Number of Stairs To 6 steps no rail Enter/Railing? Home Environment Standard Height Toilet,Walk in Shower,Built-In Shower Seat Home Equipment Quad Cane,Grab Bars Near Toilet Additional Social 4 steps to sewing room B rails, dgt lives in bottom History Comment level of house, rarely goes down Dgt recently retired M2 OT-IP Current Condition Start: 01/23/25 11:34 Freq: Status: Active Protocol: Document 01/23/25 11:34 [facility] (Rec: 01/23/25 11:50 [facility] Desktop) Occupational Therapy Current Condition Current Condition Evaluation Date 01/23/25 Treatment Diagnosis Left vertebral artery occlusion with CVA Diagnosis Onset Date 01/22/25 M3 OT- IP Subjective and Pain Start: 01/23/25 11:34 Freq: Status: Active Protocol: Document 01/23/25 11:34 [facility] (Rec: 01/23/25 11:50 [facility] Desktop) OT- Subjective Occupational Therapy Visit Type Type Initial Evaluation Visit Start Time 09:00 Visit Stop Time 09:38 Occupational Therapy Visit Comments Patient Comments Pt agreed to do OT eval. Patient/Caregiver TO go home. Goals OT Pain Assessment Pain When Pain Assessed At Rest Pain Present Pain Present Denied Pain M4 OT- IP ADL's Start: 01/23/25 11:34 Freq: Status: Active Protocol: Document 01/23/25 11:34 [facility] (Rec: 01/23/25 11:50 [facility] Desktop) OT [id number] Comments OT Self-Feeding Not at meal time. Comments OT ADL-Grooming General Evaluation Grooming Ability Independent OT ADL-Oral Care General Eval Oral Care Ability Independent OT ADL-Toileting General Evaluation Toileting Ability Independent OT ADL-Bathing Comments OT Bathing Comments Best for pt to have a shower chair at this time for showering needs. M5 OT- IP IADL's Start: 01/23/25 11:34 Freq: Status: Active Protocol: Document 01/23/25 11:34 [facility] (Rec: 01/23/25 11:50 [facility] Desktop) OT-Instrumental Activities of Daily Living Home Safety Awareness Awareness of Need Good Awareness for Assistance at Home Ability to Problem Able to Problem Solve Solve Emergency Situations Medication Management Medication Pt states does her own. Management Comments Money Management Money Management Pt states ford her own. Comments Meal Preparation Meal Preparation Pt will benefit from assist. 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 Comments Driving Driving Comments Pt aware not to drive at this time. M6 OT- IP Functional Cognition Start: 01/23/25 11:34 Freq: Status: Active Protocol: Document 01/23/25 11:34 [facility] (Rec: 01/23/25 11:50 [facility] Desktop) Cognitive Factors Limiting Selfcare Function Cognitive Ability Level of Alertness Alert Patient Orientation Name,Age,Birthday,Month,Date,Year,Day of Week,Place, Situation Attention Span Capable of Focused Attention,Capable of Sustained Ability Attention Ability to Follow Able to Follow One Step Commands Commands Executive Function Unable to Organize Plans Ability Initiated the SLUMS and pt getting frustrated and not wanting to complete. Able to talk to pt's daughter to provide supervision and assist as needed. OT- Vision and Hearing OT- Hearing Assessment OT- Hearing Hearing Impaired,Use of Hearing Aids Assessment OT- Vision Assessment Visual Acuity Glasses All The Time Visual Attentiveness WFL Occular Pursuits WFL Visual Convergence WFL Visual Yee WFL M7 OT- IP Mobility and Balance Start: 01/23/25 11:34 Freq: Status: Active Protocol: Document 01/23/25 11:34 [facility] (Rec: 01/23/25 11:50 [facility] Desktop) OT-Transfer Assessment Sit to and From Stand Sit to and from Independent Stand Transfers Transfer Ability Standby Assistance Technique Transfer Destination Chair,Toilet Transfer Technique Stand Step Pivot Devices Transfer Assistive Gait Belt Devices OT- Balance Assessment Sitting Balance and Reactions Static Sitting Normal Balance Ability Dynamic Sitting Good Balance Ability Standing Balance and Reactions Static Standing Good Balance Ability Dynamic Standing Fair Balance Ability M8 OT- IP Objective Assessments Start: 01/23/25 11:34 Freq: Status: Active Protocol: Document 01/23/25 11:34 [facility] (Rec: 01/23/25 11:50 [facility] Desktop) OT Gross Range of Motion Upper Extremity Range of Motion Assessment Within Functional Limits OT Strength Upper Extremity Strength Assessment Right Impaired Comments Strength Comments RUE 4-/5 and LUE 4/4+/5 OT- Coordination Assessment Upper Extremity Finger to Nose Test Within Functional Limits Finger Tapping Test Within Functional Limits Comments Coordination 9 hole peg test 32 sec right hand and 36 sec left hand, Comments both score under 10th percentile for her age. Pt has arthritis in her hands which may also affect her score. OT Sensation Assessment Comments Summary Comments Intact for light touch and increased time for proprioception/kinesthesia for right UE. M9 OT- IP Assessment and Plan Start: 01/23/25 11:34 Freq: Status: Active Protocol: Document 01/23/25 11:34 [facility] (Rec: 01/23/25 11:50 [facility] Desktop) OT Summary Assessment and Plan Potential Rehabilitation Excellent Potential Analytic Complexity Moderate at Evaluation Summary OT Impairments Strength,Balance,Coordination,Functional Cognition, Functional Mobility,Dressing,Bathing,Toilet Transfers, Shower Transfers Progress Towards Progressing Toward Goals Goals Assessment Summary Pt MOD complexity and main barriers are decreased dynamic balance, strength decreased safety awareness, and FMS. Pt will benefit from going home with assist and outpt PT. If pt agrees to do more cognitive assessments, pending the results may also benefit from OT. Goals Dressing Goal Independent Toileting Goal Independent Bathing Goal Independent Toilet Transfer Goal Independent Shower Transfer Goal Independent Days to Meet Goals 7 Frequency of Treatment Other frequency 5x/week Treatment Plan OT Treatment Plan ADL Training,Functional Cognition Training,Functional Mobility,Patient/Family Education,Discharge Planning Discharge Recommendations OT Discharge Home with 24/10 Assistance,Outpatient PT Recommendations Home Equipment Needs Shower chair Transportation Needs Private Vehicle at Discharge
[2025-01-23] MEDS: ASPIRIN EC 81 MG TABLET PO (09:41)
[2025-01-23] MEDS: CLOPIDOGREL 75 MG TABLET PO (09:41)
[2025-01-23] MEDS: HEPARIN 5,000 UNIT/ML VIAL 5000 UNIT SUBCUT (09:42)
--- NOTE | 2025-01-23 11:22 | CM.DANOTE ---
Addendum entered by Lis Perez RN 01/23/25 11:37: Clarification: Dx. Brain TIA and Left Vertebral Artery Cerebellar Stroke Original Note: Initial DCP Assessment Note. Review EMR and PT Interview. Met with patient at bedside to discuss discharge needs.PT is alert x 4 sitting up in chair. No acute distress. Patient lives independently with Ama WREN. Owns a Tri-point cane. Payor:??[facility] PCP: Summary & Plan:?79 y/o Female arrived to ED c/o dizziness for a few days. Admitted INPT, Dx. CVA. Slight right sided weakness. Plan: Head MRI today. Possible DC home with Ama WREN, later today. 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 Lebron [facility] Advance Directives? No History Provided By Patient,Medical Record Has Patient been No admitted in last 30 days? Prior Living House Arrangements Household Members children Type of Drives own vehicle transporation used prior to admit Caregiver for No Another Barriers to No Discharge Discharge Plan Home Transportation Ama Wren Arrangement Referrals Initiated None needed Review Status In Process Please Provide Date 01/23/25 Initial DC Assessment Was Performed Next Review Type Continued Stay Review
[2025-01-23 12:00] VITALS: BP 134/46; PULSE 83; RESP 19; TEMP 37; O2SAT 97
--- NOTE | 2025-01-23 12:04 | OT.IP.EVAL ---
Occupational Therapy Inpatient Evaluation/Re-Eval M1 PT/OT-IP Prior Functional Status Start: 01/23/25 08:43 Freq: NEEDED Status: Active Protocol: Document 01/23/25 11:34 [facility] (Rec: 01/23/25 11:50 [facility] Desktop) Medical Review Prior Functional Status Medical History Yes Reviewed Diet/Fluid Regular Consistency Communication [place] Mobility and Gait no AD Activities of Daily indep cooks, cleans, drives in town until past month Living and IADL's when got COVID Social History Household Members children Living Arrangements House Number of Floors ( Two Floors Floors) Number of Stairs To 6 steps no rail Enter/Railing? Home Environment Standard Height Toilet,Walk in Shower,Built-In Shower Seat Home Equipment Quad Cane,Grab Bars Near Toilet Additional Social 4 steps to sewing room B rails, dgt lives in bottom History Comment level of house, rarely goes down Dgt recently retired M2 OT-IP Current Condition Start: 01/23/25 11:34 Freq: Status: Active Protocol: Document 01/23/25 11:34 [facility] (Rec: 01/23/25 11:50 [facility] Desktop) Occupational Therapy Current Condition Current Condition Evaluation Date 01/23/25 Treatment Diagnosis Left vertebral artery occlusion with CVA Diagnosis Onset Date 01/22/25 M3 OT- IP Subjective and Pain Start: 01/23/25 11:34 Freq: Status: Active Protocol: Document 01/23/25 11:34 [facility] (Rec: 01/23/25 11:50 [facility] Desktop) OT- Subjective Occupational Therapy Visit Type Type Initial Evaluation Visit Start Time 09:00 Visit Stop Time 09:38 Occupational Therapy Visit Comments Patient Comments Pt agreed to do OT eval. Patient/Caregiver TO go home. Goals OT Pain Assessment Pain When Pain Assessed At Rest Pain Present Pain Present Denied Pain M4 OT- IP ADL's Start: 01/23/25 11:34 Freq: Status: Active Protocol: Document 01/23/25 11:34 [facility] (Rec: 01/23/25 11:50 [facility] Desktop) OT [id number] Comments OT Self-Feeding Not at meal time. Comments OT ADL-Grooming General Evaluation Grooming Ability Independent OT ADL-Oral Care General Eval Oral Care Ability Independent OT ADL-Toileting General Evaluation Toileting Ability Independent OT ADL-Bathing Comments OT Bathing Comments Best for pt to have a shower chair at this time for showering needs. M5 OT- IP IADL's Start: 01/23/25 11:34 Freq: Status: Active Protocol: Document 01/23/25 11:34 [facility] (Rec: 01/23/25 11:50 [facility] Desktop) OT-Instrumental Activities of Daily Living Home Safety Awareness Awareness of Need Good Awareness for Assistance at Home Ability to Problem Able to Problem Solve Solve Emergency Situations Medication Management Medication Pt states does her own. Management Comments Money Management Money Management Pt states ford her own. Comments Meal Preparation Meal Preparation Pt will benefit from assist. 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 Comments Driving Driving Comments Pt aware not to drive at this time. M6 OT- IP Functional Cognition Start: 01/23/25 11:34 Freq: Status: Active Protocol: Document 01/23/25 11:34 [facility] (Rec: 01/23/25 11:50 [facility] Desktop) Cognitive Factors Limiting Selfcare Function Cognitive Ability Level of Alertness Alert Patient Orientation Name,Age,Birthday,Month,Date,Year,Day of Week,Place, Situation Attention Span Capable of Focused Attention,Capable of Sustained Ability Attention Ability to Follow Able to Follow One Step Commands Commands Executive Function Unable to Organize Plans Ability OT- Vision and Hearing OT- Hearing Assessment OT- Hearing Hearing Impaired,Use of Hearing Aids Assessment OT- Vision Assessment Visual Acuity Glasses All The Time Visual Attentiveness WFL Occular Pursuits WFL Visual Convergence WFL Visual Yee WFL M7 OT- IP Mobility and Balance Start: 01/23/25 11:34 Freq: Status: Active Protocol: Document 01/23/25 11:34 [facility] (Rec: 01/23/25 11:50 [facility] Desktop) OT-Transfer Assessment Sit to and From Stand Sit to and from Independent Stand Transfers Transfer Ability Standby Assistance Technique Transfer Destination Chair,Toilet Transfer Technique Stand Step Pivot Devices Transfer Assistive Gait Belt Devices OT- Balance Assessment Sitting Balance and Reactions Static Sitting Normal Balance Ability Dynamic Sitting Good Balance Ability Standing Balance and Reactions Static Standing Good Balance Ability Dynamic Standing Fair Balance Ability M8 OT- IP Objective Assessments Start: 01/23/25 11:34 Freq: Status: Active Protocol: Document 01/23/25 11:34 [facility] (Rec: 01/23/25 11:50 [facility] Desktop) OT Gross Range of Motion Upper Extremity Range of Motion Assessment Within Functional Limits OT Strength Upper Extremity Strength Assessment Right Impaired Comments Strength Comments RUE 4-/5 and LUE 4/4+/5 OT- Coordination Assessment Upper Extremity Finger to Nose Test Within Functional Limits Finger Tapping Test Within Functional Limits Comments Coordination 9 hole peg test 32 sec right hand and 36 sec left hand, Comments both score under 10th percentile for her age. Pt has arthritis in her hands which may also affect her score. OT Sensation Assessment Comments Summary Comments Intact for light touch and increased time for proprioception/kinesthesia for right UE. M9 OT- IP Assessment and Plan Start: 01/23/25 11:34 Freq: Status: Active Protocol: Document 01/23/25 11:34 [facility] (Rec: 01/23/25 11:50 [facility] Desktop) OT Summary Assessment and Plan Potential Rehabilitation Excellent Potential Analytic Complexity Moderate at Evaluation Summary OT Impairments Strength,Balance,Coordination,Functional Cognition, Functional Mobility,Dressing,Bathing,Toilet Transfers, Shower Transfers Progress Towards Progressing Toward Goals Goals Assessment Summary Pt MOD complexity and main barriers are decreased dynamic balance, strength, decreased safety awareness and FMS. Pt will benefit form going home with 24/7 assist and outpt PT. Pending if pt agreeable to do more cognitive assessments, may benefit from outpt OT. Pt believes that she would do much better if having had slept better last night. Goals Dressing Goal Independent Toileting Goal Independent Bathing Goal Independent Toilet Transfer Goal Independent Shower Transfer Goal Independent Days to Meet Goals 7 Frequency of Treatment Other frequency 5x/week Treatment Plan OT Treatment Plan ADL Training,Functional Cognition Training,Functional Mobility,Patient/Family Education,Discharge Planning Discharge Recommendations OT Discharge Home with Assistance,Outpatient PT Recommendations Home Equipment Needs Shower chair Transportation Needs Private Vehicle at Discharge
--- NOTE | 2025-01-23 14:13 | ST.IPCSEOM ---
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 Morel Reason for Referral CVA Setting Assessment Location Acute Care Visit Type Note Type Initial evaluation Patient Information Identification Type Name,Wristband History Per H&P: Vertiginous spinning sensation with findings of acute left vertebral artery occlusion with subacute stroke on CT imaging and angiography History of present illness 79-year-old female no previous history of strokes or myocardial infarction has been having 5-10 minute episodes dizziness feeling like the room is spinning for the past 2 days was brought to the emergency department for evaluation. She reports when she walks she had to hold up on the hallways and specially felt clumsy with her left leg Findings in the emergency department significant for: CT head and vessels angiography: 1. 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 2. No acute posterior fossa brain parenchymal findings. Patient referred for speech therapy evaluation due to cerebrovascular accident (CVA), with evaluation focused on assessment of swallowing function. Subjective Pt sitting upright in chair in room up on ST entering Observations room. Pt awake, alert and agreeable to evaluation. ST consulted with nursing prior to entering Pt room. Pt reports she is hungry and wanting something to eat. ST provided Pt with phong crackers and a peanut butter and jelly sandwich. Pt reported she could not eat the crackers d/t not being able to eat soy. She then bit into the PBJ sandwich and reported she is allergic to peanuts with ST cueing her to spit it out. ST notified nursing that Pt was exposed to peanuts, with nursing communicating to patient for her to notify them if she starts to have a reaction. Pt reports typical symptoms are her tongue swells and her throat closes up. Pt declined all PO options, however Pt daughter arrived during the evaluation with foods that Pt can eat, such as tangerines and homemade crackers. Pt denies any swallow issues pre/post CVA. Reported by Patient/Caregiver Current Diet Regular (IDDSI 7) Baseline Feeding Independent in self-feeding Method The IDDSI Framework Protocol: IDDSI.1 Objective Assessment Mental Status Alert,Responsive,Cooperative Oral Integrity WFL Dentition Upper dentures/partials Lip Function Within normal limits Tongue Function Within normal limits Jaw Function Within normal limits Respiratory Within normal limits Sufficiency Food and Liquid Trials Position During Upright (90 degrees) Assessment Liquids Trialed Thin (IDDSI 0) Solid Trials Regular (IDDSI 7) Administration Type Straw Oral Impairment Within normal limits Oral Phase Comments Pt consumed tangerines and homemade crackers that her daughter brought in for her, along with about 4 oz of thin water via straw. Pt with upper dentures in place. For solids, Pt took adequate bite sizes, prolonged mastication however adequate bolus formation and control, minimal oral stasis. Pt denied globus sensation. For thin water via straw, Pt with adequate suction, good oral acceptance and containment, no overt s/s of aspiration such as coughing or choking. Pt able to feed self independently Pharyngeal Within normal limits Impairment Pharyngeal Phase See oral phase comments Comments Fatigue/Endurance Endurance WNL The IDDSI Framework Protocol: IDDSI.1 Findings Swallowing Function Within functional limits Severity of Swallow Within functional limits Impairment Prognosis Good Recommendations Instrumental No Assessment Swallowing Treatment No Recommended Solids Regular (IDDSI 7) Recommended Liquids Thin (IDDSI 0) Other Pt presents with functional oral and pharyngeal phases Recommendations of the swallow. ST recommends IDDSI 7 and IDDSI 0 with the below safe swallowing strategies in place. ST recommended Pt communicate if staff if any change in swallow function occurs. Safety Precautions/ Remain upright (90 degrees) during all oral intake, Swallowing Upright position at least 30 minutes after meals,Small Recommendations bites and sips when eating,Slow rate; swallow between bites,Alternate liquids and solids Medication As Tolerated Recommendations Education Patient/Caregiver Described results of evaluation,Patient expressed Education understanding of evaluation,Family/caregivers expressed understanding of evaluation,Patient expressed understanding of safety precautions,Family/caregivers expressed understanding of safety precautions
--- NOTE | 2025-01-23 16:04 | PM.DS.1 ---
History of Present Illness History of Present Illness Chief complaint: Left vertebral artery occlusion with stroke Narrative: From H&P (Siddharth): Chief complaint: Vertiginous spinning sensation with findings of acute left vertebral artery occlusion with subacute stroke on CT imaging and angiography History of present illness 79-year-old female no previous history of strokes or myocardial infarction has been having 5-10 minute episodes dizziness feeling like the room is spinning for the past 2 days was brought to the emergency department for evaluation. She reports when she walks she had to hold up on the hallways and specially felt clumsy with her left leg Findings in the emergency department significant for: CT head and vessels angiography: 1. 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 2. No acute posterior fossa brain parenchymal findings. Comment: Recommend stroke protocol brain MRI with without contrast. Imaging should utilize dissection protocol in the neck. There is patency of the distal V4 segment. The basilar artery and posterior cerebral arteries are patent. No significant findings involving the anterior circulation. No significant carotid stenosis. EKG normal sinus rhythm no acute ST segment or T-wave changes CBC unremarkable comprehensive metabolic unremarkable AST 45 ALT 83 Urinalysis unremarkable Discharge Providers Provider Date of admission: 01/22/25 16:06 Discharge Date: 01/23/25 Primary care physician: Leona Lebron MD Consults: 01/22/25 17:06 Consult to Discharge Planning Routine Comment: Consult to Occupational Therapy Evaluate & Treat Comment: Physician Instructions: Evaluate and treat Consult to Physical Therapy Evaluate & Treat Comment: Physician Instructions: Evaluate and Treat Consult to Speech Therapy Evaluate & Treat Comment: Physician Instructions: Evaluate and treat tele stroke , both 01/22 and 01/23. Discharge provider: Fidel Keane MD Summary Hospital Course Discharge Diagnosis: 1. Bilateral cerebellar scattered CVA, active. 2. Left vertebral artery acute occlusion, active. 3. Hyperlipidemia, stable. 4. Hypertension, stable. Hospital Course: She was admitted with vertigo. Initial CT head unremarkable but CTA revealed a vertebral occlusion. Echo was obtained, negative for PFO, valve disease, or atrial fibrillation. She denies history of atrial fibrillation. MRI revealed a acute left vertebral occlusion and scattered infarcts in bilateral cerebellar hemispheres. There was no anterior circulation involvement. The case was discussed both in the day of admission and prior to discharge with [facility] tele stroke. There were no indications for treatment other than aggressive medical therapy. Recommendations were for dual antiplatelet therapy for 21 days followed by aspirin at a higher dose of 162 daily. Her atorvastatin is chronically at 40, this will be increased to 80 mg a day. PCP we will be asked to set up retail management keyholder. The patient is educated to look for symptoms of stroke and call 911 immediately. She was further educated that she was at higher risk for recurrent TIA or stroke symptoms. Therapies assessment indicated that she was stable for discharge home with outpatient therapy. Note she had been having cervical manipulation by a chiropractor, she was advised to stop this at this point in time. Status at Discharge Cognitive/behavioral status at discharge: oriented Functional status at discharge: independent ambulation Overall status at discharge: patient is progressing back to baseline Time Spent with Patient Time spent: Greater than 30 minutes Exam Vital Signs (past 8 hours): - 01/23/25 12:00 Temperature 98.6 F Pulse Rate 83 Respiratory Rate 19 Blood Pressure 134/46 L Pulse Oximetry 97 Oxygen Flow Rate 0 Oxygen Delivery Method Room Air Oxygen Flow Rate 0 Narrative Exam Narrative: NAD, alert and oriented. Fluent speech. Lungs are clear, normal rate and effort. Heart is regular, no murmur gallop or rub. Abdomen is soft, non distended. Extremities are free of edema. NEURO: Normal cranial nerves, speech, and judgment. No nystagmus. Motor strength 5/5 all extremities with normal rapid alternating movements and relatively normal gait. Objective ECG Impression: Intervals Lee Rate: 68 P: 22 DC: 166 QRS: 23 QRSD: 90 T: 21 QT: 398 QTc: 423 Interpretive Statements Normal sinus rhythm Possible Anterior infarct , age undetermined Imaging Multiple studies:: Radiologist's impression: CT head: 1. 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 2. No acute posterior fossa brain parenchymal findings. CTA head and neck: Occlusion of almost the entire left vertebral artery, a normal caliber vessel, potentially representing acute thrombosis. There is patency of the distal V4 segment. The basilar artery and posterior cerebral arteries are patent. No significant findings involving the anterior circulation. No significant carotid stenosis. Echo: Interpretation Summary The ejection fraction is estimated to be 55-60%. There is no Doppler evidence for an interatrial shunt. There is mild tricuspid regurgitation. The dimensions of the ascending aorta are normal. MRI brain: 1. 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 Additionally, there is a tiny punctate left occipital spann-white junction infarct. Subtle cytotoxic edema identified. No hemorrhage seen. 2. Avhw-vn-rhpzaxts small vessel ischemic change. BRAIN MR ANGIOGRAM: 1. 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 2. No other significant arterial findings in the head. NECK MR ANGIOGRAM: 1. Acute thrombosis of a most the entirety of the left vertebral artery. 2. Widely patent carotids. Labs 01/22/25 13:30 01/23/25 05:14 Labs: Laboratory Results - last 24 hr 01/22/25 01/23/25 13:30 05:14 Sodium 133 L Potassium 4.1 Chloride 102 Carbon Dioxide 25 BUN 14 Creatinine 0.52 Estimated GFR > 60 BUN/Creatinine Ratio 26.9 H Glucose 113 H Hemoglobin A1c 6.6 H Calcium 8.7 Triglycerides 73 Cholesterol 130 L LDL Cholesterol, Calc 77 HDL Cholesterol 38 L TSH 0.752 PFSH Social History household members: children Smoking Status: Never smoker alcohol intake: never Discharge Assessment & Plan Assessment and Plan Assessment: 1. Bilateral cerebellar scattered CVA, active. 2. Left vertebral artery acute occlusion, active. Plan of Treatment: Close FU PCP, medications as outlined above, dual antiplatelet therapy 21 days and then a higher dose of aspirin 162 daily thereafter. Recommendations for retail management keyholder. Discharge Plan Discharge Plan Patient Disposition: Home Provider Discharge Comment: Stable for discharge with very close follow up with PCP, outpatient retail management keyholder, and dual antiplatelet therapy for 21 days. Discharge orders & Medications Prescriptions: New aspirin 81 mg Tablet,Delayed Release (Dr/Ec) 81 mg PO DAILY Qty: 21 0RF atorvastatin 20 mg Tablet 80 mg PO BEDTIME Qty: 30 0RF clopidogrel 75 mg Tablet 75 mg PO DAILY Qty: 21 0RF Continued lisinopril-hydrochlorothiazide 20-25 mg tablet 1 tab PO DAILY Discontinued atorvastatin 40 mg tablet 40 mg PO DAILY Follow up/Referrals: Loena Lebron MD [Primary Care Provider, Family Practice] Discharge Health Status Multidrug resistant organism: No MDRO Diet/Activity/Treatments Diet: Low-cholesterol Visit Report/Discharge Packet Stand Alone Forms: Patient Portal/API, Stroke Signs & Symptoms Discharge Data Primary Care Provider: Leona Lebron VTE Deep Vein Thrombosis/Pulmonary Embolism Present on Admission: No
--- NOTE | 2025-01-23 16:17 | PC.NURSE ---
IV and tele removed. Discussed new Rx that pt will start, including the change in the statin medication. Discussed s/s of stroke, when to call 911. Pt exited via w/c with [employer] to private vehicle.
--- NOTE | 2025-01-23 18:00 | DI.MRI.S_ITS ---
PROCEDURE: MR STROKE Pre- and post-contrast brain MRI, non-contrast brain MR angiogram, pre- and postcontrast neck MR angiogram INDICATIONS: Stroke TECHNIQUE: Brain: Noncontrast axial T1 spin echo, axial T2 fast spin echo, sagittal and axial FLAIR, coronal T2 fast spin echo, axial gradient echo, axial diffusion and ADC through the brain. After the administration of contrast, axial 3D VIBE of the cranial vasculature and brain. Brain MRA: Non-contrast 3-D time of flight MR angiogram, with multiple kvykcwk-apakermkg-xvkyhncoev (MIP) reformats performed. Neck MRA: Axial and sagittal TruFISP through the neck. Coronal dynamic MR angiogram during administration of contrast in the arterial and venous phases, with 3- dimenstional wmqzjqz-ehfpminyb-ofskgeyvno (MIP) reformats constructed from subtraction images. COMPARISON: [facility], CT, CT HEAD/BRAIN WO CON, 01/22/2025, 15:00. [facility], CT, CT ANGIO HEAD AND NECK, 01/22/2025, 15:00. FINDINGS: Image quality: Excellent. BRAIN: CSF spaces: Ventricles are normal in size and shape. Basal cisterns are patent. No extra-axial fluid collections. Brain: No intracranial bleeds or mass effects. Wren-white matter interface is normal. 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 Findings are consistent with embolic shower. There is no involvement of the medulla, chai, or midbrain. There is a single focal punctate area of wren-white junction region infarct measuring 3 mm or less in the left occipital lobe. There is subtle cytotoxic edema related to the areas of acute infarct. For instance, reference axial image 6 of axial FLAIR sequence 13. No anterior circulation infarcts are identified. Age- related volume loss and xeqe-tm-bvazohqd small vessel ischemic change. Brainstem appears normal. 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 For instance, reference axial image 13 of series 26. No abnormal intracranial enhancement. Skull and face: Calvarial marrow signal is normal. Orbits appear normal. Sinuses: Sinuses and mastoids are clear. BRAIN MR ANGIOGRAM: Anterior circulation: Intracranial internal carotid arteries are normal in size and enhancement. The flow within the paired anterior cerebral arteries is normal and symmetric. The flow within the middle cerebral arteries is normal and symmetric. The anterior communicating artery is seen. No stenoses, occlusions, or aneurysms. Posterior circulation: The left vertebral artery is occluded from its origin and reconstitutes in the distal V4 segment. The right vertebral artery is widely patent. It gives rise to a normal caliber basilar artery. There is likely retrograde flow in the V4 segment of the left vertebral artery. The flow within the posterior cerebral arteries is normal and symmetric. No stenoses, occlusions, or aneurysms. NECK MR ANGIOGRAM: Carotids: Great vessels demonstrate a conventional anatomy as they arise from the aortic arch. The origins of the common carotid arteries appear patent. The calibers and courses of both common carotid arteries are normal. The bifurcation regions appear normal bilaterally. The internal carotid arteries demonstrate normal course and caliber. Posterior circulation: There is acute thrombosis of the left vertebral artery from its origin to the distal V4 segment where it reconstitutes and likely fills in a retrograde manner. The right vertebral artery is widely patent, giving rise to a normal caliber basilar artery. Miscellaneous: Subclavian arteries appear patent. Normal variant bovine arch anatomy. Pre-contrast images through the neck show no soft tissue abnormalities. IMPRESSION: BRAIN MRI: 1. 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 Additionally, there is a tiny punctate left occipital wren-white junction infarct. Subtle cytotoxic edema identified. No hemorrhage seen. 2. Thrj-sy-bexkdsps small vessel ischemic change. BRAIN MR ANGIOGRAM: 1. 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 2. No other significant arterial findings in the head. NECK MR ANGIOGRAM: 1. Acute thrombosis of a most the entirety of the left vertebral artery. 2. Widely patent carotids. Dictated by: Robby Luis M.D. on 01/23/2025 at 12:09 Approved by: Robby Luis M.D. on 01/23/2025 at 12:21
== END 2025-01-23 16:16 | disposition home or self-care (01) ==
LOC: ED 15:52 → AC 16:07
PROVIDERS: Admitting Provider Internal Medicine; Emergency Provider Emergency Medicine; PCP Family Medicine; Referring Provider Emergency Medicine; Visit Provider Internal Medicine
DX: I63.012 Cerebral infarction due to thrombosis of left vertebral artery (principal); I63.89 Other cerebral infarction; E78.5 Hyperlipidemia, unspecified; I10 Essential (primary) hypertension; R42 Dizziness and giddiness; R29.700 NIHSS score 0
CPT/HCPCS: 36415; 70450; 70496; 70498; 70544; 70549; 70553; 71045; 80048; 80053; 80061; 81001; 82550; 83036; 83690; 83735; 83880; 84443; 84484; 85025; 85610; 85730; 87086; 92610; 93005; 93010; 93306; 96360; 96361; 96372; 97129; 97162; 97166; 97530; 99285; G0378; A9579; J1644; J7030; Q9967